=== PATIENT | female | born 1965 | race Caucasian/White ===

== ENCOUNTER 2018-08-23 12:57 | Observation (INO) ==
--- NOTE | 2018-08-23 13:10 | Emergency Department Note ---
Disposition Clinical Impression: Chronic schizophrenia UTI (urinary tract infection) Qualifiers: Urinary tract infection type: acute cystitis Hematuria presence: without hematuria Qualified Code(s): N30.00 - Acute cystitis without hematuria Disposition: Admitted As Inpatient Condition: Good Forms: ED Satisfaction Letter Time of Disposition: 14:05 General Adult HPI - General Chief complaint: ED Psychiatric Symptoms Stated complaint: psych Source: patient, EMS Mode of arrival: EMS Limitations: no limitations Nursing Notes Reviewed: Yes Vital Signs Reviewed: Yes - History of Present Illness HPI Narrative: Patient reporting to the emergency department by EMS from [facility]. Patient was sent here for psychiatric evaluation. She was cleared from her medically for psychiatric evaluation. However the patient does have a urinary tract infection. 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 She has a urostomy bag secondary to neurogenic bladder secondary to spina bifida and diabetes. We will reculture this urine patient does have labs sent from [facility] done today. She is alert and oriented 3 at this time. She denies any hallucinations visual or auditory. She denies any other symptoms currently. We will start an IV and start patient on vancomycin for her UTI pending culture sensitivity. She does have several antibiotic allergies. The only anabolic she states she can take her Carbapenemns times and vancomycin. - Related Data Home Medications Medication Instructions Recorded Confirmed Alpha Lipoic Acid 600 mg PO DAILY 08/23/18 08/23/18 Argin/Glut/Cahmb/Collag/Mv-Min 1 each PO BID 08/23/18 08/23/18 [Marcus Packet] Ascorbate Calcium [Vitamin C] 500 mg PO DAILY 08/23/18 08/23/18 Cyclobenzaprine [Flexeril] 5 mg PO HS 08/23/18 08/23/18 Dicyclomine [Bentyl] 10 mg PO Q12H 08/23/18 08/23/18 Divalproex Sodium 1,000 mg PO QPM 08/23/18 08/23/18 Divalproex Sodium 500 mg PO QAM 08/23/18 08/23/18 Famotidine [Pepcid] 20 mg PO BID 08/23/18 08/23/18 Ferrous Sulfate [Iron] 325 mg PO DAILY 08/23/18 08/23/18 Fluticasone Propionate Nasal 2 spray NS DAILY 08/23/18 08/23/18 [Flonase] Fluticasone/Salmeterol [Advair 1 each IH BID 08/23/18 08/23/18 500-50 Diskus] Gabapentin [Neurontin] 800 mg PO QID 08/23/18 08/23/18 Insulin Glargine [Lantus] 42 unit SUBTEN DAILY 08/23/18 08/23/18 Insulin LISPRO [HumaLOG] 0 units SQ ACHS 08/23/18 08/23/18 Isosorbide DInitrate [Isosorbide 5 mg PO TID 08/23/18 08/23/18 Dinitrate] Levothyroxine [Synthroid] 150 mcg PO DAILY 08/23/18 08/23/18 Metoprolol Succinate [Toprol Xl] 25 mg PO DAILY 08/23/18 08/23/18 OxyCODONE Immed Rel [Roxicodone 15 15 mg PO Q6HR 08/23/18 08/23/18 MG] Pravastatin Sodium [Pravachol] 20 mg PO HS 08/23/18 08/23/18 Rivaroxaban [Xarelto] 15 mg PO 1700 08/23/18 08/23/18 Venlafaxine [Effexor] 150 mg PO HS 08/23/18 08/23/18 Ziprasidone HCl [Geodon] 40 mg PO BID 08/23/18 08/23/18 traZODone [TraZODone] 100 mg PO HS 08/23/18 08/23/18 Allergies Allergy/AdvReac Type Severity Reaction Status Date / Time Apple Allergy Hives Verified 08/23/18 10:58 aspirin Allergy Hives Verified 08/23/18 10:58 azithromycin Allergy Hives Verified 08/23/18 10:58 ceftriaxone Allergy Hives Verified 08/23/18 10:58 clindamycin Allergy Hives Verified 08/23/18 10:58 doxycycline Allergy Hives Verified 08/23/18 10:58 gentamicin Allergy Hives Verified 08/23/18 10:58 Lemon Allergy Hives Verified 08/23/18 10:58 metronidazole Allergy Hives Verified 08/23/18 10:58 morphine Allergy Hives Verified 08/23/18 10:58 nitrofurantoin Allergy Hives Verified 08/23/18 10:58 orange Allergy Hives Verified 08/23/18 10:58 Penicillins [PCN] Allergy Hives Verified 08/23/18 10:58 Quinolones Allergy Hives Verified 08/23/18 10:58 Sulfa (Sulfonamide Allergy Hives Verified 08/23/18 10:58 Antibiotics) All systems ED: reviewed and negative except as stated. Review of Systems: As Per HPI Constitutional: Denies: fever Respiratory: Denies: cough, dyspnea Gastrointestinal: Denies: abdominal pain, nausea, vomiting, diarrhea Integumentary: Denies: rash Psychiatric: Denies: suicidal thoughts, homicidal thoughts, auditory hallucinations, visual hallucinations Past Medical History - Past Medical History Attestation: Yes The following information was validated with the patient. Source: patient Medical history: Reports: other (Spina bifida morbid obesity paraplegic chronic interstitial nephritis dyspnea cataract surgery high cholesterol seizures asthma hypothyroid CHF) Psychiatric history: Reports: bipolar, depression - Social History Smoking Status: Never smoker Smokeless Tobacco Status: No Alcohol use: Reports: none Drug use: Reports: none Physical Exam - General General appearance: alert, anxious - Head Head exam: atraumatic, normocephalic, normal inspection - Eye Eye exam: Present: normal appearance, PERRL, EOMI - ENT ENT exam: normal exam, normal oropharynx, mucous membranes moist - Neck Neck exam: Present: normal inspection, full ROM, trachea midline - Chest Chest inspection: Present: normal inspection, symmetric chest wall rise - Respiratory Respiratory exam: Present: normal lung sounds bilaterally. Absent: respiratory distress, accessory muscle use - Cardiovascular Cardiovascular exam: Present: regular rate, normal rhythm, normal heart sounds - Abdominal Exam Abdominal exam: Present: soft, Non-Tender, other (UrOstomy bag present). Absent: tenderness, distention, guarding, rebound, rigidity, organomegaly - Extremities Exam Extremities exam: Present: normal inspection, full ROM, normal capillary refill. Absent: tenderness, pedal edema - Neurological Exam Neurological exam: Present: alert, oriented X3 - Psychiatric Psychiatric exam: Present: anxious. Absent: homicidal ideation, suicidal ideation - Skin Skin exam: Present: warm, dry, intact, normal color Course Course Narrative: Patient being sent from [employer]. She does have a significant medical history of urostomy secondary to neurogenic bladder secondary to spina bifida and diabetes. We did get another urinalysis and are sending her urine for culture. She has a significant history of allergies to different antibiotics. We did place her on vancomycin. I did find in her chart that she has had VRE last year in July. We sent her urine for culture as well. She is not febrile a gaudencio stable vitals here. Patient is still pink slipped as she was not stable at the outside facility. She currently denies any SI or HI to me. She also denies any hallucinations but she has been people at the [facility] to get her. She is tearful on exam with clear lung sounds and normal heart tones. We will admit patient to the hospital for IV antibiotics secondary to her UTI. Vital Signs Temperature 98.1 F 08/23/18 13:01 Pulse Rate 82 08/23/18 13:01 Respiratory Rate 16 08/23/18 13:01 Blood Pressure 156/81 08/23/18 13:01 O2 Sat by Pulse Oximetry 95 08/23/18 13:01 Temperature 98.1 F 08/23/18 13:01 Pulse Rate 82 08/23/18 13:01 Respiratory Rate 16 08/23/18 13:01 Blood Pressure 156/81 08/23/18 13:01 O2 Sat by Pulse Oximetry 95 08/23/18 13:01 Oxygen Delivery Oxygen Delivery Room Air Medical Decision Making - Medical Records Medical records reviewed: Yes I reviewed the patient's medical records. - Lab Data Lab results reviewed: Yes I reviewed the patient's lab results.
[2018-08-23 14:02] LABS: Bilirubin,Urine Negative (Negative); Blood,Urine Small (Negative); Clarity,Urine Cloudy (Clear); Color,Urine Yellow (Yellow); Glucose,Urine (UA) Normal (Normal); Ketones,Urine Negative (Negative); Leukocyte Esterase,Urine Large (Negative); Nitrite,Urine Positive (Negative); Protein,Urine Negative (Neg-Trace); Specific Gravity,Urine 1.012 (1.010-1.025); Urobilinogen,Urine Normal (Normal)
[2018-08-23 14:03] LABS: Bacteria,Urine Many per hpf (None-Few)
[2018-08-23 14:18] LABS: Squamous Epithelial Cell,Urine Few per lpf (None-Few)
[2018-08-23 14:19] LABS: Hyaline Casts,Urine None Seen per lpf (None-Few); RBC,Urine 0-3 per hpf (0-3)
--- NOTE | 2018-08-23 14:19 | Emergency Department Note ---
Disposition Clinical Impression: Chronic schizophrenia UTI (urinary tract infection) Qualifiers: Urinary tract infection type: acute cystitis Hematuria presence: without hematuria Qualified Code(s): N30.00 - Acute cystitis without hematuria Disposition: Admitted As Inpatient Condition: Good Forms: ED Satisfaction Letter General Adult HPI - General Chief complaint: ED Psychiatric Symptoms Stated complaint: psych Time Seen by Provider: 08/23/18 13:01 Source: patient, EMS Mode of arrival: EMS Limitations: no limitations - History of Present Illness Pain Scale: 7 - Related Data Home Medications Medication Instructions Recorded Confirmed Alpha Lipoic Acid 600 mg PO DAILY 08/23/18 08/23/18 Argin/Glut/Cahmb/Collag/Mv-Min 1 each PO BID 08/23/18 08/23/18 [Marcus Packet] Ascorbate Calcium [Vitamin C] 500 mg PO DAILY 08/23/18 08/23/18 Cyclobenzaprine [Flexeril] 5 mg PO HS 08/23/18 08/23/18 Dicyclomine [Bentyl] 10 mg PO Q12H 08/23/18 08/23/18 Divalproex Sodium 1,000 mg PO QPM 08/23/18 08/23/18 Divalproex Sodium 500 mg PO QAM 08/23/18 08/23/18 Famotidine [Pepcid] 20 mg PO BID 08/23/18 08/23/18 Ferrous Sulfate [Iron] 325 mg PO DAILY 08/23/18 08/23/18 Fluticasone Propionate Nasal 2 spray NS DAILY 08/23/18 08/23/18 [Flonase] Fluticasone/Salmeterol [Advair 1 each IH BID 08/23/18 08/23/18 500-50 Diskus] Gabapentin [Neurontin] 800 mg PO QID 08/23/18 08/23/18 Insulin Glargine [Lantus] 42 unit SUBTEN DAILY 08/23/18 08/23/18 Insulin LISPRO [HumaLOG] 0 units SQ ACHS 08/23/18 08/23/18 Isosorbide DInitrate [Isosorbide 5 mg PO TID 08/23/18 08/23/18 Dinitrate] Levothyroxine [Synthroid] 150 mcg PO DAILY 08/23/18 08/23/18 Metoprolol Succinate [Toprol Xl] 25 mg PO DAILY 08/23/18 08/23/18 OxyCODONE Immed Rel [Roxicodone 15 15 mg PO Q6HR 08/23/18 08/23/18 MG] Pravastatin Sodium [Pravachol] 20 mg PO HS 08/23/18 08/23/18 Rivaroxaban [Xarelto] 15 mg PO 1700 08/23/18 08/23/18 Venlafaxine [Effexor] 150 mg PO HS 08/23/18 08/23/18 Ziprasidone HCl [Geodon] 40 mg PO BID 08/23/18 08/23/18 traZODone [TraZODone] 100 mg PO HS 08/23/18 08/23/18 Allergies Allergy/AdvReac Type Severity Reaction Status Date / Time Apple Allergy Hives Verified 08/23/18 10:58 aspirin Allergy Hives Verified 08/23/18 10:58 azithromycin Allergy Hives Verified 08/23/18 10:58 ceftriaxone Allergy Hives Verified 08/23/18 10:58 clindamycin Allergy Hives Verified 08/23/18 10:58 doxycycline Allergy Hives Verified 08/23/18 10:58 gentamicin Allergy Hives Verified 08/23/18 10:58 Lemon Allergy Hives Verified 08/23/18 10:58 metronidazole Allergy Hives Verified 08/23/18 10:58 morphine Allergy Hives Verified 08/23/18 10:58 nitrofurantoin Allergy Hives Verified 08/23/18 10:58 orange Allergy Hives Verified 08/23/18 10:58 Penicillins [PCN] Allergy Hives Verified 08/23/18 10:58 Quinolones Allergy Hives Verified 08/23/18 10:58 Sulfa (Sulfonamide Allergy Hives Verified 08/23/18 10:58 Antibiotics) Constitutional: Denies: fever Respiratory: Denies: cough, dyspnea Gastrointestinal: Denies: abdominal pain, nausea, vomiting, diarrhea Integumentary: Denies: rash Psychiatric: Denies: suicidal thoughts, homicidal thoughts, auditory hallucinations, visual hallucinations Past Medical History - Past Medical History Medical history: Reports: other (Spina bifida morbid obesity paraplegic chronic interstitial nephritis dyspnea cataract surgery high cholesterol seizures asthma hypothyroid CHF) Psychiatric history: Reports: bipolar, depression - Social History Smoking Status: Never smoker Smokeless Tobacco Status: No Alcohol use: Reports: none Drug use: Reports: none Physical Exam - General Limitations: no limitations General appearance: alert, anxious Course Vital Signs Temperature 98.1 F 08/23/18 13:01 Pulse Rate 82 08/23/18 13:01 Respiratory Rate 16 08/23/18 13:01 Blood Pressure 156/81 08/23/18 13:01 O2 Sat by Pulse Oximetry 95 08/23/18 13:01 Temperature 98.1 F 08/23/18 13:01 Pulse Rate 82 08/23/18 13:01 Respiratory Rate 16 08/23/18 13:01 Blood Pressure 156/81 08/23/18 13:01 O2 Sat by Pulse Oximetry 95 08/23/18 13:01 Oxygen Delivery Oxygen Delivery Room Air Medical Decision Making - Lab Data Lab Results 08/23/18 Range/Units 13:33 Urine Color Yellow (Yellow) Urine Clarity Cloudy A (Clear) Urine pH 7.0 (5.0-8.0) pH Units Ur Specific Thornton 1.012 (1.010-1.025) Urine Protein Negative (Neg-Trace) mg/dL Urine Glucose (UA) Normal (Normal) mg/dL Urine Ketones Negative (Negative) mg/dL Urine Blood Small H (Negative) Urine Nitrite Positive A (Negative) Urine Bilirubin Negative (Negative) Urine Urobilinogen Normal (Normal) mg/dL Ur Leukocyte Esterase Large H (Negative) Attestation Statement - Attestation Attestation: I examined this patient and my medical decision-making was reviewed with the Resident Physician. I agree with the documented findings, disposition and treatment plan as described except to the extent set forth below. 52 year old female from [facility] for pysch evaluation. Scooby has chronic schizophrenia and sent here and has a urostomy bag that appears to be infeted. Scooby will be admitted to medicine for UTI therapy as she can only tolerate IV ABX for the treatment of her UTI, and then consult 1A. Medicine service acccepts
[2018-08-23] MEDS ORDERED: Naloxone 0.4 MG/ML INJ IVP PRN (15:17)
--- NOTE | 2018-08-23 16:04 | Internal Med History&Physical ---
Date of Encounter: 08/23/18 Time of Encounter: 16:01 Internal Medicine - H&P: HPI Chief complaint: Paranoid delusions, urinary tract infection Admitted From: Emergency Dept Plans for Post Hospital Care: Transfer Psych Facility History of present illness: Ms. Kaufman is a 52 year old female patient with a history of spina bifida with neurogenic bladder and right-sided urostomy who was initially seen at [facility] where she was sent over from her [facility] with complaints of increasing paranoid delusions. Patient reportedly has a history of schizophrenia. She denies any hallucinations at this time but does exhibit some paranoid delusions stating that the [facility] was out to get her and people are calling her the wrong names. She states that they sent her to the ER saying that she needed medical clearance but they actually were wanted her to be evaluated by psychiatry. Reviewing ED records from [facility] and our ER, patient was pink slipped here. She did not exhibit any suicidal behavior. She apparently became very argumentative and angry in the ER at [facility] and stated that she did not agree to be evaluated for mental health. Presently, she reports chronic back pain. Otherwise denies any fevers or chills. No nausea or vomiting. No fever reported. Past Med Surg Social Fam HX - Past Medical History Source: patient, old records reviewed Medical history: other (Spina bifida morbid obesity paraplegic chronic interstitial nephritis dyspnea cataract surgery high cholesterol seizures asthma hypothyroid CHF, neurogenic bladder) Additional medical history: allergic rhinitis. anemia. arthropathy. bipolar. congenital heart disease. neuromuscular dysfunction of the bladder. spineabifida Psychiatric history: bipolar, depression - Past Surgical History Additional surgical history: colectomy. laminectomy. ilial conduit with urinary devision - Social History Smoking Status: Never smoker Smokeless Tobacco Status: No Alcohol use: none Drug use: none - Additional Family History Additional family history: Family history reviewed and found to be noncont ributory at this time Internal Medicine - H&P: Meds Alpha Lipoic Acid 600 mg PO DAILY 08/23/18 [History] Argin/Glut/Cahmb/Collag/Mv-Min [Marcus Packet] 1 each PO BID 08/23/18 [History] Ascorbate Calcium [Vitamin C] 500 mg PO DAILY 08/23/18 [History] Cyclobenzaprine [Flexeril] 5 mg PO HS 08/23/18 [History] Dicyclomine [Bentyl] 10 mg PO Q12H 08/23/18 [History] Divalproex Sodium 1,000 mg PO QPM 08/23/18 [History] Divalproex Sodium 500 mg PO QAM 08/23/18 [History] Famotidine [Pepcid] 20 mg PO BID 08/23/18 [History] Ferrous Sulfate [Iron] 325 mg PO DAILY 08/23/18 [History] Fluticasone Propionate Nasal [Flonase] 1 spray NS DAILY 08/23/18 [History] Fluticasone/Salmeterol [Advair 500-50 Diskus] 1 each IH BID 08/23/18 [History] Gabapentin [Neurontin] 800 mg PO QID 08/23/18 [History] Insulin Glargine [Lantus] 42 unit SUBTEN DAILY 08/23/18 [History] Insulin LISPRO [HumaLOG] 0 units SQ ACHS 08/23/18 [History] Isosorbide DInitrate [Isosorbide Dinitrate] 5 mg PO TID 08/23/18 [History] Levothyroxine [Synthroid] 150 mcg PO DAILY 08/23/18 [History] Metoprolol Succinate [Toprol Xl] 25 mg PO DAILY 08/23/18 [History] OxyCODONE Immed Rel [Roxicodone 15 MG] 15 mg PO Q6HR 08/23/18 [History] Pravastatin Sodium [Pravachol] 20 mg PO HS 08/23/18 [History] Rivaroxaban [Xarelto] 15 mg PO 1700 08/23/18 [History] Venlafaxine [Effexor] 150 mg PO HS 08/23/18 [History] Ziprasidone HCl [Geodon] 40 mg PO BID 08/23/18 [History] traZODone [TraZODone] 100 mg PO HS 08/23/18 [History] Allergy/AdvReac Type Severity Reaction Status Date / Time Apple Allergy Hives Verified 08/23/18 10:58 aspirin Allergy Hives Verified 08/23/18 10:58 azithromycin Allergy Hives Verified 08/23/18 10:58 ceftriaxone Allergy Hives Verified 08/23/18 10:58 clindamycin Allergy Hives Verified 08/23/18 10:58 doxycycline Allergy Hives Verified 08/23/18 10:58 gentamicin Allergy Hives Verified 08/23/18 10:58 Lemon Allergy Hives Verified 08/23/18 10:58 metronidazole Allergy Hives Verified 08/23/18 10:58 morphine Allergy Hives Verified 08/23/18 10:58 nitrofurantoin Allergy Hives Verified 08/23/18 10:58 orange Allergy Hives Verified 08/23/18 10:58 Penicillins [PCN] Allergy Hives Verified 08/23/18 10:58 Quinolones Allergy Hives Verified 08/23/18 10:58 Sulfa (Sulfonamide Allergy Hives Verified 08/23/18 10:58 Antibiotics) All Systems PM: A 10-system review of systems was performed and is negative for pertinent findings except as documented above in the HPI. - Constitutional Constitutional: no chills, no fever(s), no night sweats - EENT Eyes: no change in vision, no discharge, no pain, no photophobia Ears: no ear discharge, no ear pain, no tinnitus Nose, mouth and throat: no dysphagia, no nasal discharge, no neck pain, no sore throat - Cardiovascular Cardiovascular ROS IM: no chest pain, no diaphoresis, no dyspnea, no lightheadedness, no palpitations, no syncope - Respiratory Respiratory: no cough, no dyspnea, no wheezing, no excessive phlegm production - Gastrointestinal Gastrointestinal: no abdominal pain, no diarrhea, no hematemesis, no hematochezia, no melena, no nausea, no vomiting - Genitourinary Genitourinary: no change in urinary stream, no dysuria, no flank pain, no hematuria - Musculoskeletal Musculoskeletal ROS IM: no numbness, no tingling - Integumentary Integumentary IM: no rash, no unusual bruising - Neurological Neurological ROS: behavioral changes, no confusion, no convulsions, no focal weakness, no numbness, no tingling, no tremor(s) - Psychiatric Psychiatric: paranoia - Hematologic/Lymphatic Hematologic/Lymphatic: no easy bruising - Constitutional Vitals: Temp Pulse Resp BP Pulse Ox 98.1 F 82 16 156/81 95 08/23/18 13:01 08/23/18 13:01 08/23/18 13:01 08/23/18 13:01 08/23/18 13:01 General appearance: Present: cooperative, A&O X 3, morbidly obese, answers questions appropriately Exam: . - Neck Neck exam general surgery: Present: supple, trachea midline. Absent: lymphadenopathy - Respiratory Respiratory exam: Present: CTAB. Absent: accessory muscle use, rales, rhonchi, wheezes - Cardiovascular Cardiovascular exam: Present: RRR, +S1, +S2. Absent: diastolic murmur, gallop, rubs, systolic murmur - GI/Abdominal GI/Abdominal exam: Present: normal bowel sounds, soft, no peritoneal signs. Absent: distended, tenderness - Additional comments: Right-sided urostomy with Apple bag - Neurological Exam Neurological exam: Present: CN II-XII intact, oriented X3. Absent: facial droop, speech deficit Additional comments: Paraplegia - Psychiatric Additional comments: Patient exhibits paranoia Internal Med - H&P Results - Labs Labs: Urine 08/23/18 Range/Units 13:33 Urine Color Yellow (Yellow) Urine Clarity Cloudy A (Clear) Urine pH 7.0 (5.0-8.0) pH Units Ur Specific Check 1.012 (1.010-1.025) Urine Protein Negative (Neg-Trace) mg/dL Urine Glucose (UA) Normal (Normal) mg/dL - Assessment and plan (1) UTI (urinary tract infection) Current Visit: Yes Status: Acute Assessment and plan: Complicated urinary tract infection due to presence of urostomy with Apple bag. Started on vancomycin in the ER. Will continue vancomycin while we await culture results. ER records document that patient previously had VRE. I do not see any records of it here. Patient is allergic to multiple antibiotics including azithromycin, ceftriaxone, doxycycline, clindamycin, gentamicin, nitrofurantoin, Flagyl, penicillins, sulfa drugs. As such we will place her on aztreonam in addition to vancomycin. Monitor for any allergies. Continue with Benadryl if she develops any rash. Moderate risk for complications. Qualifiers: Urinary tract infection type: catheter-associated UTI Indwelling urinary catheter type: unspecified Encounter type: initial encounter Qualified Code(s): T83.511A - Infection and inflammatory reaction due to indwelling urethral catheter, initial encounter; N39.0 - Urinary tract infection, site not specified (2) Chronic schizophrenia Current Visit: Yes Status: Acute Assessment and plan: Patient exhibiting paranoia. Consulted psychiatry. We will resume home medications. (3) Neurogenic bladder Current Visit: Yes Status: Acute Assessment and plan: With urostomy in Apple bag in place. (4) Spina bifida Current Visit: Yes Status: Chronic Assessment and plan: With paraplegia. Supportive care. Treat chronic back pain Qualifiers: Spinal region: unspecified Presence of hydrocephalus: unspecified hydrocephalus presence Qualified Code(s): Q05.9 - Spina bifida, unspecified (5) Chronic back pain Current Visit: Yes Status: Acute Assessment and plan: We will treat symptomatically. Continue home medications. Qualifiers: Back pain location: low back pain Back pain laterality: unspecified Sciatica presence: without sciatica Qualified Code(s): M54.5 - Low back pain; G89.29 - Other chronic pain (6) DVT prophylaxis Current Visit: Yes Status: Acute Assessment and plan: Patient is on Xarelto. Will continue - Time Spent With Patient Total time spent is greater than 50% in coordination of care (as documented) at patient's floor/unit and/or counseling patient:
[2018-08-23] MEDS ORDERED: Vancomycin 0 MG in 0.9 % Sodium Chloride 250 ML IVPB SCH (18:00)
--- NOTE | 2018-08-23 18:18 | Consult Note ---
Date of Encounter: 08/24/18 Time of Encounter: 08:36 Assessment & Recommendation (1) Chronic schizophrenia Current visit: Yes Status: Chronic Assessment & Recommendation: -Patient is likely suffering from a decompensation due to a recent change in medication; however, this is not completely known, as it is not known how reliable she is currently as a historian. Thus, it is recommended that the facility be called to determine her psychiatric baseline, what medications have been changed, when, and why, and if any medication has been helpful or she has been stable on in the past -For now, it is recommended that she be continued on her current psychiatric medications of Ziprasidone, Divalproex, Trazodone, and Venlafaxine while collateral is collected -Recommend Valproic acid level -Although patient is on a pink slip for acute psychosis, as she denies SI and HI, was not pink slipped for these issues, and is not able to get out of bed, she is not seen as a high risk for harm to self or others in a volitional sense. As such, we recommend discontinuing the 1:1 sitter at this time. However, if threats of fears of harm to self or others arise, please reinitiate this care -Will continue to follow History of Present Illness Patient: new to practice Requesting Physician: Anneliese Cotton MD Reason for consult: Psychosis History of present illness: Ms. Kaufman is a 52 year old female with a past psychiatric history of Schizophrenia who was transferred from the [facility] and admitted for UTI and was consulted for psychosis. Reports state that she was originally brought in for psychiatric stabilization. Reports explains that she felt there was "killer racists" at her nursing facility. When she presented, a UTI was found, and she was placed on medical. When speaking with the patient today, she reports that she is "fine" but is "angry with [facility]," her nursing care facility of 3 years. She reports that she did not have too much issue up until 2 weeks ago when people started believing she was "someone else." She reports that they believe her to be a murderer, child molester, thief, and arsonist. She reports that they will say things away from her but within earshot about her being this person and a "bitch." However, when she confront them about it, they will tell her that she is "hearing things." She denies this adamantly, stating that the nursing staff have called the police in an attempt to have her arrested for being a child molester, although the police did not end up showing. She reports that they will also state that her son is , which she reports he is not. She reports that she was recently taken off Fluphenzaine and titrated up to 40mg PO BID of Ziprasidone by a new psychiatrist who stated the Ziprasidone would have fewer side effects. She states that this was done this month or last. She does show signs of Tardive Dyskinesia, with movements of the mouth, tongue, and hands noted. She reports depression and anxiety reactionary to the above stressors. She reports trouble sleeping because she is "scared" due to what the nursing staff might do. However, she reports improvement in anxiety and sleep with listening to music. She reports a decreased appetite due to "frustration." She denies side effects to medications or physical complaints other than back pain. She denies SI, HI, AH, and VH and a history of AH and VH. CC: Anneliese Cotton MD Past Med Surg Social Fam - Past Medical History Medical history: arthritis, asthma, CHF, diabetes, GERD, thyroid disease, other (Spina Bifida) - Past Psychiatric History Psychiatric history: Reports: schizophrenia Family psychiatric history: Unknown Family History of Suicide: Unknown - Past Surgical History Surgical History: non-contributory - Social History Smoking Status: Former smoker Packs per day: smoked 2.5-3 packs, quitting 32 years ago Smokeless Tobacco Status: No Alcohol use: none Drug use: none Occupational status: disabled Current living situation: [facility] Activity Level: Bed bound Recent Out of Country Travel Within the Last 8 Weeks: No - Family History Mother History Unknown: Yes Adopted: Yes Medications & Allergies Argin/Glut/Cahmb/Collag/Mv-Min [Marcus Packet] 1 each PO BID 08/23/18 [History] Ascorbate Calcium [Vitamin C] 500 mg PO DAILY 08/23/18 [History] Cyclobenzaprine [Flexeril] 5 mg PO HS 08/23/18 [History] Dicyclomine [Bentyl] 10 mg PO Q12H 08/23/18 [History] Famotidine [Pepcid] 20 mg PO BID 08/23/18 [History] Ferrous Sulfate [Iron] 325 mg PO DAILY 08/23/18 [History] Fluticasone Propionate Nasal [Flonase] 1 spray NS DAILY 08/23/18 [History] Fluticasone/Salmeterol [Advair 500-50 Diskus] 1 each IH BID 08/23/18 [History] Gabapentin [Neurontin] 800 mg PO QID 08/23/18 [History] Insulin Glargine [Lantus] 42 unit SUBTEN DAILY 08/23/18 [History] Insulin LISPRO [HumaLOG] 0 units SQ ACHS 08/23/18 [History] Isosorbide DInitrate [Isosorbide Dinitrate] 5 mg PO TID 08/23/18 [History] Levothyroxine [Synthroid] 150 mcg PO DAILY 08/23/18 [History] Metoprolol Succinate [Toprol Xl] 25 mg PO DAILY 08/23/18 [History] OxyCODONE Immed Rel [Roxicodone 15 MG] 15 mg PO Q6HR 08/23/18 [History] Pravastatin Sodium [Pravachol] 20 mg PO HS 08/23/18 [History] RX: Alpha Lipoic Acid 600 mg PO DAILY 08/23/18 [History] RX: Divalproex Sodium 1,000 mg PO QPM 08/23/18 [History] RX: Divalproex Sodium 500 mg PO QAM 08/23/18 [History] RX: traZODone [TraZODone] 100 mg PO HS 08/23/18 [History] Rivaroxaban [Xarelto] 15 mg PO 1700 08/23/18 [History] Venlafaxine [Effexor] 150 mg PO HS 08/23/18 [History] Ziprasidone HCl [Geodon] 40 mg PO BID 08/23/18 [History] Allergy/AdvReac Type Severity Reaction Status Date / Time Apple Allergy Hives Verified 08/23/18 10:58 aspirin Allergy Hives Verified 08/23/18 10:58 azithromycin Allergy Hives Verified 08/23/18 10:58 ceftriaxone Allergy Hives Verified 08/23/18 10:58 clindamycin Allergy Hives Verified 08/23/18 10:58 doxycycline Allergy Hives Verified 08/23/18 10:58 gentamicin Allergy Hives Verified 08/23/18 10:58 Lemon Allergy Hives Verified 08/23/18 10:58 metronidazole Allergy Hives Verified 08/23/18 10:58 morphine Allergy Hives Verified 08/23/18 10:58 nitrofurantoin Allergy Hives Verified 08/23/18 10:58 orange Allergy Hives Verified 08/23/18 10:58 Penicillins [PCN] Allergy Hives Verified 08/23/18 10:58 Quinolones Allergy Hives Verified 08/23/18 10:58 Sulfa (Sulfonamide Allergy Hives Verified 08/23/18 10:58 Antibiotics) Review of Systems Musculoskeletal: Reports: back pain Psychiatric: Reports: depression, anxiety, abnormal sleep pattern, change in appetite, auditory hallucinations (not subjectively but objectively). Denies: suicidal ideation, homicidal ideation, visual hallucinations Psychiatry Exam - Constitutional Vitals: Temp Pulse Resp BP Pulse Ox 98.1 F 82 16 156/81 95 08/23/18 13:01 08/23/18 13:01 08/23/18 13:01 08/23/18 13:01 08/23/18 13:01 General appearance: age & developmentally appropriate, well-groomed, well- nourished, obese Additional observations: bed ridden - Musculoskeletal Gait: other (nonmobile) Station: relaxed Strength & Tone: normal for patient, mild weakness - Psychiatric Patient Orientation: Yes Person, Yes Time, Yes Place, Yes Circumstance Level of alertness: Alert, Follows commands Behavior: calm, cooperative, other (mild movements of the tongue and mouth and tremor (left>right) that are tardive in nature) Psychomotor activity: Normal Eye Contact: Maintains Eye Contact Mood Description: Euthymic/stable Affect description: congruent with mood, full range Speech Volume: Normal Speech pattern: normal rate, normal rhythm, normal tone, fluent, spontaneous, appropriate, clear, coherent Language & Vocabulary: consistent with education Thought Process: Logical, Linear, Goal Oriented Thought Content: No Suicidal ideation, No Homicidal ideation, Yes Overt delusions (believes people at the residential believe her to be a criminal and are trying to ge ther arrested) Perceptual Disturbances: Yes Auditory hallucinations (likely hearing voices of nursing staff calling her a murderer), No Visual hallucinations Attention Span Ability: Capable of Focused Attention Memory Description: Grossly Intact Patient Reliability: Questionable Historian Fund of knowledge: Yes abstraction ability, Yes aware of current events Intelligence Estimate: Average Judgment: Limited Insight: Minimal Results - Drug Levels and Toxicology Drug Levels and Toxicology: from [facility] [facility] on 08/23/18: UDS: Positive for Opioids (which she is prescribed) NAVYA, Acetaminophen, Ethanol: Negative - Labs Labs: Laboratory Last Values Urine Color Yellow (Yellow) 08/23/18 13:33 Urine Clarity Cloudy (Clear) A 08/23/18 13:33 Urine pH 7.0 pH Units (5.0-8.0) 08/23/18 13:33 Ur Specific [place] 1.012 (1.010-1.025) 08/23/18 13:33 Urine Protein Negative mg/dL (Neg-Trace) 08/23/18 13:33 Urine Glucose (UA) Normal mg/dL (Normal) 08/23/18 13:33 Urine Ketones Negative mg/dL (Negative) 08/23/18 13:33 Urine Blood Small (Negative) H 08/23/18 13:33 Urine Nitrite Positive (Negative) A 08/23/18 13:33 Urine Bilirubin Negative (Negative) 08/23/18 13:33 Urine Urobilinogen Normal mg/dL (Normal) 08/23/18 13:33 Ur Leukocyte Esterase Large (Negative) H 08/23/18 13:33 Urine Microscopic RBC 0-3 per hpf (0-3) 08/23/18 13:33 Urine Microscopic WBC 5-15 per hpf (0-3) H 08/23/18 13:33 Ur Squamous Epith Cells Few per lpf (None-Few) 08/23/18 13:33 Urine Bacteria Many per hpf (None-Few) H 08/23/18 13:33 Hyaline Casts None Seen per lpf (None-Few) 08/23/18 13:33 Ur Culture Indicated? YES (NO) A 08/23/18 13:33 Labs from [facility] on 08/23/18: TSH: 0.030 CBC: WNL CMP: WNL except for AST = 8, AT = 6, and BUN = 29 - Impressions None noted this admission Consult Discharge Plan - Plan Referrals: NONE,PCP [Primary Care Provider] - - Attending Attestation I examined this patient and my medical decision-making was reviewed with the Resident Physician. I agree with the documented findings, disposition and treatment plan as described except to the extent set forth below.
[2018-08-23] MEDS: *HR* OxyCODONE Immed Rel 15 MG TABLET PO SCH (18:54)
[2018-08-23] MEDS: *HR* Rivaroxaban 15 MG TABLET PO SCH (18:54)
[2018-08-23] MEDS: Gabapentin 400 MG CAPSULE PO SCH ×2 (18:55→22:04)
[2018-08-23] MEDS: Divalproex (12 HR) 500 MG TABLET PO SCH (18:58)
[2018-08-23] MEDS: Famotidine 20 MG TABLET PO SCH (22:04)
[2018-08-23] MEDS: Budesonide/Formoterol 160/4.5 1 PUFF INH IH SCH (22:41)
[2018-08-24] MEDS: traZODone 50 MG TABLET PO SCH ×2 (00:21→21:41)
[2018-08-24] MEDS: Ziprasidone 20 MG CAPSULE PO SCH ×3 (00:21→21:40)
[2018-08-24] MEDS: Aztreonam 500 MG in 0.9 % Sodium Chloride 50 ML IVPB SCH ×3 (00:28→18:04)
[2018-08-24] MEDS: *HR* OxyCODONE Immed Rel 15 MG TABLET PO SCH ×4 (01:32→17:55)
[2018-08-24] MEDS: Famotidine 20 MG TABLET PO SCH ×2 (09:22→21:41)
[2018-08-24] MEDS: Metoprolol XL (24 HR) Succ 25 MG TAB.ER.24H PO SCH (09:23)
[2018-08-24] MEDS: Fluticasone Propionate Nasal 50 MCG/SPRAY BOTTLE NS SCH (09:23)
[2018-08-24] MEDS: Divalproex (12 HR) 500 MG TABLET PO SCH ×2 (09:23→18:05)
[2018-08-24] MEDS: Gabapentin 400 MG CAPSULE PO SCH ×4 (09:23→21:40)
[2018-08-24] MEDS: Budesonide/Formoterol 160/4.5 1 PUFF INH IH SCH ×2 (09:31→20:29)
[2018-08-24 13:04] LABS: Basophils % 0.3 %; Eosinophils # 0.1 K/mcL (0.0-0.6); Eosinophils % 1.4 %; Hematocrit 35.3 % (35.3-44.9); Hemoglobin 11.1 g/dL (11.5-15.4); Immature Granulocytes % 0.3 % (0-4); Lymphocytes # 1.7 K/mcL (0.6-4.6); Lymphocytes % 28.9 %; Mean Corpuscular HGB Conc 31.4 g/dL (31.6-35.5); Mean Corpuscular Hemoglobin 27.9 pg (28.0-33.3); Mean Corpuscular Volume 88.7 fL (83.0-100.0); Mean Platelet Volume 10.3 fL (9.4-12.4); Monocytes # 0.5 K/mcL (0.0-1.3); Monocytes % 8.6 %; Neutrophils # 3.5 K/mcL (1.6-8.9); Platelet Count 151 K/mcL (140-400); Red Blood Count 3.98 M/mcL (3.82-4.97); Red Cell Distribution Width 15.7 % (11.5-14.5); Segmented Neutrophils % 60.5 %
[2018-08-24 13:12] LABS: BUN/Creatinine Ratio 35 (6-26); Blood Urea Nitrogen 23 mg/dL (6-20); Calcium 9.2 mg/dL (8.6-10.3); Carbon Dioxide 29 mEq/L (23-29); Chloride 106 mEq/L (98-107); Glucose 108 mg/dL (70-105); Osmolality,Calculated 300 (280-300); Potassium 4.7 mEq/L (3.5-5.1); Sodium 143 mEq/L (136-145); eGFR For Non-African Americans > 60 (> 60)
--- NOTE | 2018-08-24 15:06 | Internal Med Progress Note ---
Hospitalist Progress Note - Encounter Date of Encounter: 08/24/18 Time of Encounter: 09:10 - Subjective Interval History: Patient lying down in bed. Very somnolent. Awakes and answers questions but falls back asleep easily. No fever or chills reported overnight. - Exam Vitals: Temp Pulse Resp BP Pulse Ox 98.2 F 78 16 146/80 94 08/24/18 11:51 08/24/18 11:51 08/24/18 11:51 08/24/18 11:51 08/24/18 11:51 Exam: General: Patient is somnolent, but awakes but falls asleep easily. ENT: Mucous membranes moist Respiratory: Good respiratory effort. Normal breath sounds. No wheezing or crackles. Cardiovascular: Regular rate and rhythm. s1 and s2 normal No clicks, rubs, gallops, or murmurs. No pedal edema Abdomen: Abdomen is soft, nontender. Bowel sounds are present, urostomy present connected to Apple bag. Musculoskeletal: Spontaneously moving all extremities Skin: warm, dry, intact. Neuro: Somnolent normal cranial nerves, no focal deficits - Assessment and Plan (1) UTI (urinary tract infection) Current Visit: Yes Status: Acute Assessment and Plan: Urine culture grew mixed organisms. We will repeat urine culture. Continue vancomycin and aztreonam for now. WBC count remains normal. (2) Chronic schizophrenia Current Visit: Yes Status: Chronic Assessment and Plan: Patient has been somnolent since she received Geodon yesterday. Will decrease dosage. Psychiatry following. (3) Neurogenic bladder Current Visit: Yes Status: Acute Assessment and Plan: Has urostomy connected to Apple bag. (4) Spina bifida Current Visit: Yes Status: Chronic Assessment and Plan: Supportive care. Decubitus ulcer prophylaxis (5) Chronic back pain Current Visit: Yes Status: Chronic Assessment and Plan: Pain is well controlled at this time. Continue her usual medications (6) DVT prophylaxis Current Visit: Yes Status: Acute Assessment and Plan: Continue Xarelto - Time Spent with Patient Total time spent is greater than 50% in coordination of care (as documented) at patient's floor/unit and/or counseling patient: Internal Medicine: Result - Labs CBC & Chem 7: 08/24/18 12:38 08/24/18 12:38 Labs: Short CBC 08/24/18 Range/Units 12:38 WBC 5.8 (4.3-11.1) K/mcL Hgb 11.1 L (11.5-15.4) g/dL Hct 35.3 (35.3-44.9) % Plt Count 151 (140-400) K/mcL Neutrophils # 3.5 (1.6-8.9) K/mcL BMP 08/24/18 12:38 Sodium 143 Potassium 4.7 Chloride 106 Carbon Dioxide 29 BUN 23 H Creatinine 0.66 Glucose 108 H Calcium 9.2 Consult Discharge Plan - Plan Referrals: NONE,PCP [Primary Care Provider] - (1) UTI (urinary tract infection) Qualifiers: Urinary tract infection type: catheter-associated UTI Indwelling urinary catheter type: unspecified Encounter type: initial encounter Qualified Code(s): T83.511A - Infection and inflammatory reaction due to indwelling urethral catheter, initial encounter; N39.0 - Urinary tract infection, site not specified (4) Spina bifida Qualifiers: Spinal region: unspecified Presence of hydrocephalus: unspecified hydrocephalus presence Qualified Code(s): Q05.9 - Spina bifida, unspecified (5) Chronic back pain Qualifiers: Back pain location: low back pain Back pain laterality: unspecified Sciatica presence: without sciatica Qualified Code(s): M54.5 - Low back pain; G89.29 - Other chronic pain
[2018-08-24] MEDS ORDERED: Aminoglycoside Consult 1 EACH MC ONE (15:50)
[2018-08-24] MEDS: *HR* Rivaroxaban 15 MG TABLET PO SCH (18:05)
[2018-08-25] MEDS: Aztreonam 500 MG in 0.9 % Sodium Chloride 50 ML IVPB SCH ×2 (01:34→09:03)
[2018-08-25] MEDS: *HR* OxyCODONE Immed Rel 15 MG TABLET PO SCH ×2 (03:50→06:27)
[2018-08-25 06:11] LABS: Basophils % 0.3 %; Eosinophils # 0.1 K/mcL (0.0-0.6); Eosinophils % 1.6 %; Hematocrit 35.2 % (35.3-44.9); Immature Granulocytes % 0.5 % (0-4); Lymphocytes # 2.3 K/mcL (0.6-4.6); Lymphocytes % 39.9 %; Mean Corpuscular HGB Conc 31.3 g/dL (31.6-35.5); Mean Corpuscular Hemoglobin 27.6 pg (28.0-33.3); Mean Corpuscular Volume 88.2 fL (83.0-100.0); Monocytes # 0.6 K/mcL (0.0-1.3); Monocytes % 9.6 %; Neutrophils # 2.8 K/mcL (1.6-8.9); Platelet Count 142 K/mcL (140-400); Red Blood Count 3.99 M/mcL (3.82-4.97); Red Cell Distribution Width 15.8 % (11.5-14.5); Segmented Neutrophils % 48.1 %
[2018-08-25 06:41] LABS: BUN/Creatinine Ratio 32 (6-26); Blood Urea Nitrogen 24 mg/dL (6-20); Calcium 9.3 mg/dL (8.6-10.3); Carbon Dioxide 26 mEq/L (23-29); Chloride 107 mEq/L (98-107); Glucose 122 mg/dL (70-105); Osmolality,Calculated 299 (280-300); Potassium 4.5 mEq/L (3.5-5.1); Sodium 142 mEq/L (136-145); eGFR For Non-African Americans > 60 (> 60)
[2018-08-25] MEDS: Budesonide/Formoterol 160/4.5 1 PUFF INH IH SCH (07:58)
[2018-08-25] MEDS: Famotidine 20 MG TABLET PO SCH (09:04)
[2018-08-25] MEDS: Gabapentin 400 MG CAPSULE PO SCH (09:04)
[2018-08-25] MEDS: Ziprasidone 20 MG CAPSULE PO SCH (09:04)
[2018-08-25] MEDS: Metoprolol XL (24 HR) Succ 25 MG TAB.ER.24H PO SCH (09:04)
[2018-08-25] MEDS: Divalproex (12 HR) 500 MG TABLET PO SCH (09:04)
[2018-08-25] MEDS: Fluticasone Propionate Nasal 50 MCG/SPRAY BOTTLE NS SCH (09:05)
[2018-08-25 10:58] VITALS: BP 168/73
--- NOTE | 2018-08-25 11:05 | Psychiatry Progress Note ---
Date of Encounter: 08/25/18 Time of Encounter: 11:03 Subjective Interval history: Patient seen today and yesterday. Today she seems more alert and less sedated. The hospitalist decreased her Geodon yesterday from 40mg to 20 mg twice a day due to sedation. She denies suicidal or homicidal thoughts ideations or plans. She is future oriented and wants to go back to the extended care facility she came from. She says that they treat her better. She has no more delusions regarding racist murderers. She does not meet probate criteria at this time. Review of Systems Psychiatric: Denies: suicidal ideation, homicidal ideation, visual hallucinations Results - Vital Signs Vital Signs: Temp Pulse Resp BP Pulse Ox 97.5 F L 81 18 168/73 96 08/25/18 10:56 08/25/18 10:56 08/25/18 10:56 08/25/18 10:56 08/25/18 10:56 - Labs Labs: Laboratory Results - last 24 hr 08/24/18 08/24/18 08/24/18 12:38 12:38 12:38 WBC 5.8 RBC 3.98 Hgb 11.1 L Hct 35.3 MCV 88.7 MCH 27.9 L MCHC 31.4 L RDW 15.7 H Plt Count 151 MPV 10.3 Immature Gran % 0.3 Seg Neutrophils % 60.5 Lymphocytes % 28.9 Monocytes % 8.6 Eosinophils % 1.4 Basophils % 0.3 Neutrophils # 3.5 Lymphocytes # 1.7 Monocytes # 0.5 Eosinophils # 0.1 Basophils # 0.0 Sodium 143 Potassium 4.7 Chloride 106 Carbon Dioxide 29 BUN 23 H Creatinine 0.66 Est GFR ( Amer) > 60 Est GFR (Non-Af Amer) > 60 BUN/Creatinine Ratio 35 H Glucose 108 H Calculated Osmolality 300 Calcium 9.2 Valproic Acid 79 08/25/18 08/25/18 04:29 04:29 WBC 5.7 RBC 3.99 Hgb 11.0 L Hct 35.2 L MCV 88.2 MCH 27.6 L MCHC 31.3 L RDW 15.8 H Plt Count 142 MPV 11.0 Immature Gran % 0.5 Seg Neutrophils % 48.1 Lymphocytes % 39.9 Monocytes % 9.6 Eosinophils % 1.6 Basophils % 0.3 Neutrophils # 2.8 Lymphocytes # 2.3 Monocytes # 0.6 Eosinophils # 0.1 Basophils # 0.0 Sodium 142 Potassium 4.5 Chloride 107 Carbon Dioxide 26 BUN 24 H Creatinine 0.74 Est GFR ( Amer) > 60 Est GFR (Non-Af Amer) > 60 BUN/Creatinine Ratio 32 H Glucose 122 H Calculated Osmolality 299 Calcium 9.3 Valproic Acid Assessment and Plan (1) Chronic schizophrenia Current visit: Yes Status: Chronic Plan: Family/Supportive other meeting, Other Additional Plan: From psychiatry perspective patient does not meet probate or pink slip criteria and pink slip can be lifted. Once she is medically stable she is fine for discharge from psychiatry perspective. Psychiatry is signing off unless reconsult. Risks, benefits, side effects, alternatives discussed w/pt: Yes Patient agreeable to treatment: Yes Consult Discharge Plan - Plan Referrals: NONE,PCP [Primary Care Provider] - Psychiatry Exam - Constitutional Vitals: Temp Pulse Resp BP Pulse Ox 97.5 F L 81 18 168/73 96 08/25/18 10:56 08/25/18 10:56 08/25/18 10:56 08/25/18 10:56 08/25/18 10:56 General appearance: obese - Musculoskeletal Gait: slow Station: stooped Strength & Tone: normal for patient - Psychiatric Patient Orientation: Yes Person, Yes Place Level of alertness: Alert Behavior: calm, cooperative Psychomotor activity: Slowed Eye Contact: Maintains Eye Contact Mood Description: Euthymic/stable Patient description of mood: "I want to leave this place" Affect description: congruent with mood Speech Volume: Normal Speech pattern: normal rate, normal rhythm, normal tone, fluent, spontaneous Language & Vocabulary: consistent with education Thought Process: [place] Thought Content: No Suicidal ideation, No Homicidal ideation Perceptual Disturbances: No Auditory hallucinations Attention Span Ability: Capable of Sustained Attention Memory Description: Immediate Intact, Recent Impaired, Remote Intact Patient Reliability: Questionable Historian Fund of knowledge: Yes below average Intelligence Estimate: Below Average Judgment: Limited Insight: Minimal
--- NOTE | 2018-08-25 12:50 | Discharge Summary ---
- NOTES TO OUTPATIENT PROVIDER Notes to Outpatient Provider: Patient with a history of spina bifida, schizophrenia, paraplegia, with neurogenic bladder and urostomy was hospitalized here after she was sent over from [facility] for evaluation by psychiatry regarding paranoid delusions. She was also diagnosed with acute UTI. She was s tarted on IV antibiotics. Psychiatry evaluated patient. Patient was initially placed under psychiatric hold. Patient's urine culture grew mixed organisms. Given that she has a urostomy connected to a Apple back, she is likely to have many contaminants. She never had any fever, leukocytosis. As such she does not require any further antibiotics. She has been cleared for discharge from a psychiatric standpoint. We did decrease her Geodon dosage to 20 mg twice daily as patient has been very somnolent with her current dose of 40 mg twice a day. She needs to follow up with her psychiatrist as outpatient. Orders not resulted at time of discharge: Pending orders 08/25/18 08:14 Urinalysis Reflex Cult & Micro [URIN] Stat 08/25/18 12:00 Vancomycin,Trough Timed Date of Encounter: 08/25/18 Time of Encounter: 09:00 - Discharge Diagnosis (1) UTI (urinary tract infection) Priority: Primary Status: Resolved Qualifiers: Urinary tract infection type: catheter-associated UTI Indwelling urinary catheter type: unspecified Encounter type: initial encounter Qualified Code(s): T83.511A - Infection and inflammatory reaction due to indwelling urethral catheter, initial encounter; N39.0 - Urinary tract infection, site not specified (2) Chronic schizophrenia Priority: Secondary Status: Chronic (3) Neurogenic bladder Priority: Secondary Status: Acute (4) Spina bifida Priority: Secondary Status: Chronic Qualifiers: Spinal region: unspecified Presence of hydrocephalus: unspecified hydrocephalus presence Qualified Code(s): Q05.9 - Spina bifida, unspecified (5) Chronic back pain Priority: Secondary Status: Chronic Qualifiers: Back pain location: low back pain Back pain laterality: unspecified Sciatica presence: without sciatica Qualified Code(s): M54.5 - Low back pain; G89.29 - Other chronic pain (6) DVT prophylaxis Priority: Secondary Status: Acute Hospital course: Ms. Kaufman is a 52 year old female Patient with a history of spina bifida, schizophrenia, paraplegia, with neurogenic bladder and urostomy was hospitalized here after she was sent over from [facility] for evaluation by psychiatry regarding paranoid delusions. She was also diagnosed with acute UTI. She was started on IV antibiotics. Psychiatry evaluated patient. Patient was initially placed under psychiatric hold. Patient's urine culture grew mixed organisms. Given that she has a urostomy connected to a Apple back, she is likely to have many contaminants. She never had any fever, leukocytosis. As such she does not require any further antibiotics. She has been cleared for discharge from a psychiatric standpoint. We did decrease her Geodon dosage to 20 mg twice daily as patient has been very somnolent with her current dose of 40 mg twice a day. She needs to follow up with her psychiatrist as outpatient. Discharge discussed with: patient, nurse, case management - Time Spent with Patient Total time spent providing and/or coordinating discharge services: Less than 30 minutes (25 min) - Discharge Medications Prescriptions: New Ziprasidone [Geodon] 20 mg PO BID #60 capsule Continue OxyCODONE Immed Rel [Roxicodone 15 MG] 15 mg PO Q6HR 5 Days #20 tablet Insulin LISPRO [HumaLOG] 0 units SQ ACHS Venlafaxine [Effexor] 150 mg PO HS Rivaroxaban [Xarelto] 15 mg PO 1700 Ascorbate Calcium [Vitamin C] 500 mg PO DAILY Argin/Glut/Cahmb/Collag/Mv-Min [Marcus Packet] 1 each PO BID Pravastatin Sodium [Pravachol] 20 mg PO HS Metoprolol Succinate [Toprol Xl] 25 mg PO DAILY Levothyroxine [Synthroid] 150 mcg PO DAILY Isosorbide DInitrate [Isosorbide Dinitrate] 5 mg PO TID Gabapentin [Neurontin] 800 mg PO QID Ferrous Sulfate [Iron] 325 mg PO DAILY Divalproex Sodium 1,000 mg PO QPM Divalproex Sodium 500 mg PO QAM Dicyclomine [Bentyl] 10 mg PO Q12H Alpha Lipoic Acid 600 mg PO DAILY Fluticasone/Salmeterol [Advair 500-50 Diskus] 1 each IH BID Fluticasone Propionate Nasal [Flonase] 1 spray NS DAILY Famotidine [Pepcid] 20 mg PO BID Cyclobenzaprine [Flexeril] 5 mg PO HS Insulin Glargine [Lantus] 42 unit SUBTEN DAILY traZODone [TraZODone] 100 mg PO HS Discontinued Ziprasidone HCl [Geodon] 40 mg PO BID Home Medications: Alpha Lipoic Acid 600 mg PO DAILY 08/23/18 [History] Argin/Glut/Cahmb/Collag/Mv-Min [Marcus Packet] 1 each PO BID 08/23/18 [History] Ascorbate Calcium [Vitamin C] 500 mg PO DAILY 08/23/18 [History] Cyclobenzaprine [Flexeril] 5 mg PO HS 08/23/18 [History] Dicyclomine [Bentyl] 10 mg PO Q12H 08/23/18 [History] Divalproex Sodium 1,000 mg PO QPM 08/23/18 [History] Divalproex Sodium 500 mg PO QAM 08/23/18 [History] Famotidine [Pepcid] 20 mg PO BID 08/23/18 [History] Ferrous Sulfate [Iron] 325 mg PO DAILY 08/23/18 [History] Fluticasone Propionate Nasal [Flonase] 1 spray NS DAILY 08/23/18 [History] Fluticasone/Salmeterol [Advair 500-50 Diskus] 1 each IH BID 08/23/18 [History] Gabapentin [Neurontin] 800 mg PO QID 08/23/18 [History] Insulin Glargine [Lantus] 42 unit SUBTEN DAILY 08/23/18 [History] Insulin LISPRO [HumaLOG] 0 units SQ ACHS 08/23/18 [History] Isosorbide DInitrate [Isosorbide Dinitrate] 5 mg PO TID 08/23/18 [History] Levothyroxine [Synthroid] 150 mcg PO DAILY 08/23/18 [History] Metoprolol Succinate [Toprol Xl] 25 mg PO DAILY 08/23/18 [History] Pravastatin Sodium [Pravachol] 20 mg PO HS 08/23/18 [History] Rivaroxaban [Xarelto] 15 mg PO 1700 08/23/18 [History] Venlafaxine [Effexor] 150 mg PO HS 08/23/18 [History] traZODone [TraZODone] 100 mg PO HS 08/23/18 [History] OxyCODONE Immed Rel [Roxicodone 15 MG] 15 mg PO Q6HR 5 Days #20 tablet 08/25/18 [Rx] Ziprasidone [Geodon] 20 mg PO BID #60 capsule 08/25/18 [Rx] Allergies/Adverse Reactions: Allergy/AdvReac Type Severity Reaction Status Date / Time Apple Allergy Hives Verified 08/23/18 10:58 aspirin Allergy Hives Verified 08/23/18 10:58 azithromycin Allergy Hives Verified 08/23/18 10:58 ceftriaxone Allergy Hives Verified 08/23/18 10:58 clindamycin Allergy Hives Verified 08/23/18 10:58 doxycycline Allergy Hives Verified 08/23/18 10:58 gentamicin Allergy Hives Verified 08/23/18 10:58 Lemon Allergy Hives Verified 08/23/18 10:58 metronidazole Allergy Hives Verified 08/23/18 10:58 morphine Allergy Hives Verified 08/23/18 10:58 nitrofurantoin Allergy Hives Verified 08/23/18 10:58 orange Allergy Hives Verified 08/23/18 10:58 Penicillins [PCN] Allergy Hives Verified 08/23/18 10:58 Quinolones Allergy Hives Verified 08/23/18 10:58 Sulfa (Sulfonamide Allergy Hives Verified 08/23/18 10:58 Antibiotics) Date of admission: 08/23/18 14:31 Primary care physician: PCP NONE Consults: 08/23/18 14:50 Consult to Psychiatry [CONS] Routine Consulting Provider: Psych[facility] Reason consult: Other Other reason and/or additional details: Schizophrenia with paranoid delusions Time Notified: 14:51 Call Completed: Yes 08/24/18 08:16 Consult to Internet Architect [CONS] Routine Reason for SW Consult: patient from [facility] in [place] Discharging clinician: Hailey Webb Anticipated date of discharge: 08/25/18 - Constitutional Vitals: Temp Pulse Resp BP Pulse Ox 97.5 F L 81 18 168/73 96 08/25/18 10:56 08/25/18 10:56 08/25/18 10:56 08/25/18 10:56 08/25/18 10:56 General appearance: Present: cooperative, A&O X 3, morbidly obese, answers questions appropriately Exam: . - Respiratory Respiratory exam: Present: CTAB. Absent: accessory muscle use, rales, rhonchi, wheezes - Cardiovascular Cardiovascular exam: Present: RRR, +S1, +S2. Absent: diastolic murmur, gallop, rubs, systolic murmur - GI/Abdominal GI/Abdominal exam: Present: normal bowel sounds, soft, no peritoneal signs. Absent: distended, tenderness - Psychiatric Psychiatric exam: Present: flat affect. Absent: suicidal ideation - Patient Status Disposition: Transfer SNF Condition: Good Functional capacity at discharge: bed bound Overall status at discharge: patient is progressing back to baseline - Discharge Instructions Instructions: Schizophrenia (DC) Follow Up With: NONE,PCP [Primary Care Provider] - (in 1-2 weeks) - Diet and Activity Activity: resume usual activities as tolerated Diet: advance to your usual diet, diabetic diet
--- NOTE | 2018-08-25 12:57 | Physician Discharge Referral ---
ExtendedCare Referral Info Transfer To: SNF Provider in Charge after Transfer: PCP Institutional Level of Care: Skilled - Diagnosis (1) UTI (urinary tract infection) Priority: Primary Status: Resolved (2) Chronic schizophrenia Priority: Secondary Status: Chronic (3) Neurogenic bladder Priority: Secondary Status: Acute (4) Spina bifida Priority: Secondary Status: Chronic (5) Chronic back pain Priority: Secondary Status: Chronic (6) DVT prophylaxis Priority: Secondary Status: Acute Prognosis: Fair Aware of Diagnosis: Patient Aware of Prognosis: Patient - Transfer Medications Prescriptions: OxyCODONE Immed Rel [Roxicodone 15 MG] 15 mg PO Q6HR 5 Days #20 tablet Ziprasidone [Geodon] 20 mg PO BID #60 capsule Home Medications: Alpha Lipoic Acid 600 mg PO DAILY 08/23/18 [History] Argin/Glut/Cahmb/Collag/Mv-Min [Marcus Packet] 1 each PO BID 08/23/18 [History] Ascorbate Calcium [Vitamin C] 500 mg PO DAILY 08/23/18 [History] Cyclobenzaprine [Flexeril] 5 mg PO HS 08/23/18 [History] Dicyclomine [Bentyl] 10 mg PO Q12H 08/23/18 [History] Divalproex Sodium 1,000 mg PO QPM 08/23/18 [History] Divalproex Sodium 500 mg PO QAM 08/23/18 [History] Famotidine [Pepcid] 20 mg PO BID 08/23/18 [History] Ferrous Sulfate [Iron] 325 mg PO DAILY 08/23/18 [History] Fluticasone Propionate Nasal [Flonase] 1 spray NS DAILY 08/23/18 [History] Fluticasone/Salmeterol [Advair 500-50 Diskus] 1 each IH BID 08/23/18 [History] Gabapentin [Neurontin] 800 mg PO QID 08/23/18 [History] Insulin Glargine [Lantus] 42 unit SUBTEN DAILY 08/23/18 [History] Insulin LISPRO [HumaLOG] 0 units SQ ACHS 08/23/18 [History] Isosorbide DInitrate [Isosorbide Dinitrate] 5 mg PO TID 08/23/18 [History] Levothyroxine [Synthroid] 150 mcg PO DAILY 08/23/18 [History] Metoprolol Succinate [Toprol Xl] 25 mg PO DAILY 08/23/18 [History] Pravastatin Sodium [Pravachol] 20 mg PO HS 08/23/18 [History] Rivaroxaban [Xarelto] 15 mg PO 1700 08/23/18 [History] Venlafaxine [Effexor] 150 mg PO HS 08/23/18 [History] traZODone [TraZODone] 100 mg PO HS 08/23/18 [History] OxyCODONE Immed Rel [Roxicodone 15 MG] 15 mg PO Q6HR 5 Days #20 tablet 08/25/18 [Rx] Ziprasidone [Geodon] 20 mg PO BID #60 capsule 08/25/18 [Rx] Allergies/Adverse Reactions: Allergy/AdvReac Type Severity Reaction Status Date / Time Apple Allergy Hives Verified 08/23/18 10:58 aspirin Allergy Hives Verified 08/23/18 10:58 azithromycin Allergy Hives Verified 08/23/18 10:58 ceftriaxone Allergy Hives Verified 08/23/18 10:58 clindamycin Allergy Hives Verified 08/23/18 10:58 doxycycline Allergy Hives Verified 08/23/18 10:58 gentamicin Allergy Hives Verified 08/23/18 10:58 Lemon Allergy Hives Verified 08/23/18 10:58 metronidazole Allergy Hives Verified 08/23/18 10:58 morphine Allergy Hives Verified 08/23/18 10:58 nitrofurantoin Allergy Hives Verified 08/23/18 10:58 orange Allergy Hives Verified 08/23/18 10:58 Penicillins [PCN] Allergy Hives Verified 08/23/18 10:58 Quinolones Allergy Hives Verified 08/23/18 10:58 Sulfa (Sulfonamide Allergy Hives Verified 08/23/18 10:58 Antibiotics) - Respiratory Orders Smoking Cessation: Smoking cessation has been advised. For more information, call the [place] Tobacco Quit Line at 7-504-UTHG-NOW. - Advance Directives Code Status: Full Code - Mobility Orders Other (per PRevious orders) - Rehabiliation Orders Rehab Potential: Fair Rehab Orders: Evaluation for Physical Therapy, Evaluation for Occupational Therapy - Diet Orders No Concentrated Sweets (diabetic) CERTIFICATION: I certify that the transfer of the above named patient to an Extended Care Facility is necessary for the continuing treatment of the diagnosis listed. The above information is true and accurate reflection of patient's current condition. Confidential - Redisclosure prohibited without a patient's written consent.
== END 2018-08-25 15:51 ==
LOC: 3BNU 12:57 → EMEROOARM 12:57 → 3BNU 15:39
PROVIDERS: ADMIT Internal Medicine; ATTEND Internal Medicine